=== PATIENT | female | born 2000 | race Two or more races ===

== ENCOUNTER 2023-02-10 08:51 | Inpatient (IN) | payer MEDICAID ==
[~2023-02-10] VITALS: Ht 170.2 cm; Wt 89.1 kg
[2023-02-10] MEDS ORDERED: ALBUTEROL SULF 2.5 MG/0.5ML(0.5%) NEB SOLN NEB ONE (09:45)
[2023-02-10] MEDS ORDERED: IPRATROPIUM BROM 0.5 MG/2.5ML INH SOL NEB ONE (09:45)
[2023-02-10] MEDS ORDERED: IOHEXOL 350 MG/ML 100ML IJ ONE (09:59)
[2023-02-10 10:20] LABS: Mean Corpuscular Hemoglobin 27.7 pg (28.0-32.0); Mean Corpuscular Volume 89.2 fL (80.0-100.0); Red Blood Cells 3.25 10^6/uL (4.0-5.20); White Blood Cell 26.1 10^3/uL (4.4-10.8)
[2023-02-10 10:28] LABS: Albumin 2.5 g/dL (3.4-5.0); Magnesium 2.6 mg/dL (1.6-2.6); Potassium 4.5 mmol/L (3.5-5.1)
[2023-02-10 10:30] LABS: BUN/Creatinine Ratio 40.2; Bilirubin, Total 4.7 mg/dL (0.2-1.0); Total Protein 6.1 g/dL (6.4-8.2)
[2023-02-10 10:41] LABS: Basophils % (manual) 0 (0.0-2.0); Blast Cells 0; Eosinophils % (manual) 0 (0-7); Metamyelocytes % 0; Myelocytes % 0; Promyelocytes % 0; Reactive Lymphocytes 0
[2023-02-10 11:01] LABS: Band Neutrophils % (manual) 15; Lymphocytes % (manual) 7 (10.0-50.0); Monocytes % (manual) 2 (0-12)
[2023-02-10] MEDS ORDERED: ASPirin 325 MG TAB PO ONE (11:15)
[2023-02-10] MEDS ORDERED: ACETAMINOPHEN 325 MG TAB PO ONE (11:30)
[2023-02-10] MEDS ORDERED: cefTRIAXone 1GM/50ML D5W 50 ML IV ONE (11:30)
[2023-02-10] MEDS ORDERED: AZITHROMYCIN 500MG/ 250ML 250 ML IV ONE (11:30)
[2023-02-10] MEDS ORDERED: LACTATED RINGER'S 2,000 ML IV ONE (11:30)
[2023-02-10 12:43] LABS: Urine Bacteria MOD /hpf (None Seen); Urine Blood Negative /uL (Negative); Urine Mucus FEW (None Seen); Urine Specific Gravity 1.018 (1.001-1.035); Urine WBC 2 /hpf (0 - 5)
[2023-02-10] MEDS ORDERED: MORPHINE SULFATE INJ 2 MG/ml SYRG IV PRN (15:15)
[2023-02-10] MEDS ORDERED: FUROSEMIDE 40 MG/4 ML VIAL IV ONE (15:15)
[2023-02-10] MEDS ORDERED: NITROGLYCERIN 0.4 MG SL TAB SL PRN (15:15)
[2023-02-10] MEDS ORDERED: VANCOMYCIN PER PHARMACY 0 MG IV SCH (15:15)
[2023-02-10] MEDS ORDERED: SODIUM CHLORIDE 0.9% 1,000 ML IV ONE (15:15)
[2023-02-10] MEDS ORDERED: PANTOPRAZOLE 40 MG/10 ML VIAL INJ IV ONE (15:45)
[2023-02-10] MEDS ORDERED: ENOXAPARIN SOD 100 MG/1 ML SYRINGE SC ONE (15:45)
[2023-02-10] MEDS ORDERED: VANCOMYCIN 1GM/250ML 250 ML IV ONE (16:00)
[2023-02-10] MEDS ORDERED: FUROSEMIDE INJECTION 100 MG in SODIUM CHL 0.9% 100 ML IV SCH (16:45)
[2023-02-10] MEDS ORDERED: FUROSEMIDE 20 MG/2 ML VIAL IV SCH (18:00)
[2023-02-10 18:04] LABS: Amphetamine Screen, Urine NEGATIVE (NEGATIVE); Barbiturate Scree,Urine NEGATIVE (NEGATIVE); Benzodiazephine Screen, Urine NEGATIVE (NEGATIVE); Cannabinoid Screen, Urine NEGATIVE (NEGATIVE); Cocaine Screen, Urine NEGATIVE (NEGATIVE); Opiate Scree,Urine NEGATIVE (NEGATIVE); Phencyclidine Screen, Urine NEGATIVE (NEGATIVE)
[2023-02-10 18:11] LABS: Creatinine, Urine 53 mg/dL (30.0-125.0); Protein, Urine 34.3 mg/dL (0.0-11.9); Sodium Urine < 5 mmol/L (40-220)
[2023-02-10 18:19] LABS: Cholesterol 83 mg/dL (< 200)
[2023-02-10 18:20] LABS: HDL Cholesterol 8 mg/dL (40-59); LDL Cholesterol 52 mg/dL (< 100); Triglycerides 261 mg/dL (< 150)
[2023-02-10 18:46] LABS: % Iron Saturation 18.1 % (15-50)
[2023-02-10] MEDS ORDERED: ALBUMIN 25% 100 ML IV ONE (20:45)
[2023-02-10] MEDS ORDERED: AZTREONAM 1GM INJ 1 GM in D5W 5% 50 ML IV SCH (22:00)
[2023-02-10] MEDS: CEFEPIME 2 GM in SODIUM CHL 0.9% 50 ML IV SCH (22:30)
[2023-02-10] MEDS ORDERED: SODIUM CHLORIDE 0.9% 500 ML IV ONE (23:00)
[2023-02-10] MEDS ORDERED: NOREPINEPHRINE 8 MG/250ML KIT 250 ML IV ONE (23:14)
[2023-02-10] MEDS: NOREPINEPHRINE 8 MG/250ML KIT 250 ML IV SCH (23:24)
[2023-02-11] VITALS (82 sets, daily range): BP systolic 84–127; BP diastolic 17–70
[2023-02-11 04:18] LABS: Hemoglobin 8.5 g/dL (12.2-16.2); Red Blood Cells 3.02 10^6/uL (4.0-5.20)
[2023-02-11 04:21] LABS: Hematocrit 27.1 % (36.0-46.0); Mean Corpuscular Hemoglobin 28.3 pg (28.0-32.0); Mean Corpuscular Hgb Conc. 31.5 g/dL (32.0-36.0); Mean Corpuscular Volume 89.8 fL (80.0-100.0); Red Cell Distribution Width 17.6 % (11.8-14.3)
[2023-02-11 04:41] LABS: Albumin 2.4 g/dL (3.4-5.0); BUN/Creatinine Ratio 48.8; Calcium 8.1 mg/dL (8.5-10.1); Potassium 3.9 mmol/L (3.5-5.1)
[2023-02-11 04:43] LABS: White Blood Cell 30.2 10^3/uL (4.4-10.8)
[2023-02-11 04:44] LABS: Bilirubin, Total 4.3 mg/dL (0.2-1.0); Phosphorus 3.8 mg/dL (2.5-4.90); Total Protein 6.3 g/dL (6.4-8.2)
[2023-02-11 04:45] LABS: Band Neutrophils % (manual) 0; Basophils % (manual) 0 (0.0-2.0); Blast Cells 0; Eosinophils % (manual) 0 (0-7); Metamyelocytes % 0; Myelocytes % 0; Promyelocytes % 0; Reactive Lymphocytes 0
[2023-02-11] MEDS: FUROSEMIDE INJECTION 100 MG in SODIUM CHL 0.9% 100 ML IV SCH ×2 (05:35→19:30)
[2023-02-11] MEDS: NOREPINEPHRINE 8 MG/250ML KIT 250 ML IV SCH ×3 (06:25→19:34)
[2023-02-11 09:06] LABS: Lymphocytes % (manual) 11 (10.0-50.0); Monocytes % (manual) 5 (0-12)
[2023-02-11] MEDS: PANTOPRAZOLE 40 MG/10 ML VIAL INJ IV SCH (10:08)
[2023-02-11] MEDS: ENOXAPARIN SOD 40 MG/0.4 ML SYRINGE SC SCH (10:08)
[2023-02-11] MEDS: CEFEPIME 2 GM in SODIUM CHL 0.9% 50 ML IV SCH ×2 (10:26→21:16)
[2023-02-11] MEDS: VANCOMYCIN 1GM/250ML 250 ML IV SCH (17:58)
[2023-02-11 18:49] LABS: BUN/Creatinine Ratio 47.9; Calcium 7.9 mg/dL (8.5-10.1); Potassium 3.7 mmol/L (3.5-5.1)
[2023-02-12] VITALS (92 sets, daily range): BP systolic 93–147; BP diastolic 29–66
[2023-02-12 04:15] LABS: Basophils # (auto) 0.1 10 ^3/uL (0-0.2); Basophils % (auto) 0.5 % (0.0-2.0); Eosinophils # (auto) 0 10 ^3/uL (0-0.8); Eosinophils % (auto) 0.2 % (0.0-7.0); Hematocrit 29.8 % (36.0-46.0); Hemoglobin 9.5 g/dL (12.2-16.2); Lymphocytes # (auto) 2.7 10 ^3/uL (0.4-5.4); Lymphocytes % (auto) 11.4 % (10.0-50.0); Mean Corpuscular Hemoglobin 27.8 pg (28.0-32.0); Mean Corpuscular Hgb Conc. 31.7 g/dL (32.0-36.0); Mean Corpuscular Volume 87.6 fL (80.0-100.0); Monocytes # (auto) 1.1 10 ^3/uL (0-1.3); Monocytes % (auto) 4.8 % (0.0-12.0); Neutrophils # (auto) 19.4 10 ^3/uL (1.6-8.6); Neutrophils % (auto) 83.1 % (37.0-80.0); Nucleated Red Blood Cells % 0.3 %; Red Cell Distribution Width 17.9 % (11.8-14.3); White Blood Cell 23.4 10^3/uL (4.4-10.8)
[2023-02-12 04:32] LABS: Albumin 2.3 g/dL (3.4-5.0); Calcium 7.9 mg/dL (8.5-10.1)
[2023-02-12 04:36] LABS: Bilirubin, Total 2.8 mg/dL (0.2-1.0); Total Protein 6.3 g/dL (6.4-8.2)
[2023-02-12 04:57] LABS: Potassium 2.7 mmol/L (3.5-5.1)
[2023-02-12] MEDS: VANCOMYCIN 1GM/250ML 250 ML IV SCH (05:58)
[2023-02-12] MEDS: POTASSIUM CHL 20MEQ/100ML 100 ML IV SCH ×2 (05:58→09:10)
[2023-02-12] MEDS: NOREPINEPHRINE 8 MG/250ML KIT 250 ML IV SCH ×3 (05:59→20:40)
[2023-02-12] MEDS: ENOXAPARIN SOD 40 MG/0.4 ML SYRINGE SC SCH (07:56)
[2023-02-12] MEDS ORDERED: POTASSIUM CHLORIDE 60 MEQ, LIDOCAINE 1% (LOCAL ANESTH.) 6 ML in SODIUM CHL 0.9% 500 ML IV ONE (09:00)
[2023-02-12] MEDS: CEFEPIME 2 GM in SODIUM CHL 0.9% 50 ML IV SCH (09:10)
[2023-02-12] MEDS ORDERED: fentaNYL CITRATE 100 MCG/2 ML VL IV ONE ×2 (09:30→10:15)
[2023-02-12] MEDS ORDERED: MIDAZOLAM HCL 2MG/2ML 2ml VIAL (1mg/ml) IV ONE ×2 (09:30→10:15)
[2023-02-12] MEDS ORDERED: LIDOCAINE VISCOUS 2% 15ML UD ONE (09:51)
[2023-02-12] MEDS ORDERED: MIDAZOLAM HCL 2MG/2ML 2ml VIAL (1mg/ml) ONE (10:15)
[2023-02-12] MEDS ORDERED: fentaNYL CITRATE 100 MCG/2 ML VL ONE (10:16)
[2023-02-12 11:15] LABS: INR 1.21 (0.9-1.15); Partial Thromboplastin Time 23.8 sec (24.6-33.4)
[2023-02-12] MEDS: PANTOPRAZOLE 40 MG/10 ML VIAL INJ IV SCH (12:33)
[2023-02-12] MEDS ORDERED: LIDOCAINE 1% (LOCAL ANESTH.) PF 5ml SDV ID ONE (12:45)
[2023-02-12] MEDS ORDERED: POTASSIUM EFFERVESENT TAB 25 MEQ PO SCH (14:00)
[2023-02-12] MEDS ORDERED: CEFTRIAXONE SODIUM 2 GM in D5W 5% 100 ML IV ONE (16:45)
[2023-02-12] MEDS ORDERED: ACETAMINOPHEN 325 MG TAB PO PRN (17:15)
[2023-02-12] MEDS: traMADol HCL 50 MG TAB PO PRN (17:21)
[2023-02-12] MEDS: FUROSEMIDE 20 MG/2 ML VIAL IV SCH (18:30)
[2023-02-12 20:22] LABS: BUN/Creatinine Ratio 46.2; Calcium 8.1 mg/dL (8.5-10.1); Potassium 3.3 mmol/L (3.5-5.1)
[2023-02-12] MEDS: SODIUM CHLOR 0.9% PF (SALINE LOCK) 10ML VIAL/SYR IV SCH (21:55)
[2023-02-13] VITALS (74 sets, daily range): BP systolic 102–133; BP diastolic 35–71
[2023-02-13 03:49] LABS: Basophils # (auto) 0.1 10 ^3/uL (0-0.2); Basophils % (auto) 0.5 % (0.0-2.0); Eosinophils # (auto) 0 10 ^3/uL (0-0.8); Eosinophils % (auto) 0.1 % (0.0-7.0); Hematocrit 28.8 % (36.0-46.0); Hemoglobin 9.2 g/dL (12.2-16.2); Lymphocytes # (auto) 2.1 10 ^3/uL (0.4-5.4); Lymphocytes % (auto) 9.2 % (10.0-50.0); Mean Corpuscular Hemoglobin 27.9 pg (28.0-32.0); Mean Corpuscular Hgb Conc. 31.9 g/dL (32.0-36.0); Mean Corpuscular Volume 87.4 fL (80.0-100.0); Monocytes % (auto) 4.4 % (0.0-12.0); Neutrophils # (auto) 19.4 10 ^3/uL (1.6-8.6); Neutrophils % (auto) 85.8 % (37.0-80.0); Red Blood Cells 3.29 10^6/uL (4.0-5.20); Red Cell Distribution Width 18.3 % (11.8-14.3); White Blood Cell 22.6 10^3/uL (4.4-10.8)
[2023-02-13 03:58] LABS: Potassium 3.3 mmol/L (3.5-5.1)
[2023-02-13 04:02] LABS: Albumin 2.1 g/dL (3.4-5.0); BUN/Creatinine Ratio 45.5
[2023-02-13 04:04] LABS: Total Protein 6.2 g/dL (6.4-8.2)
[2023-02-13] MEDS: NOREPINEPHRINE 8 MG/250ML KIT 250 ML IV SCH ×2 (05:08→13:49)
[2023-02-13] MEDS ORDERED: POTASSIUM CHL 20MEQ/100ML 100 ML IV ONE ×2 (05:30→05:39)
[2023-02-13] MEDS: FUROSEMIDE 20 MG/2 ML VIAL IV SCH ×2 (05:48→18:26)
[2023-02-13] MEDS ORDERED: CEFTRIAXONE SODIUM 2 GM in D5W 5% 100 ML IV SCH (10:00)
[2023-02-13] MEDS ORDERED: POTASSIUM EFFERVESENT TAB 25 MEQ PO ONE (10:00)
[2023-02-13] MEDS: ENOXAPARIN SOD 40 MG/0.4 ML SYRINGE SC SCH (10:16)
[2023-02-13] MEDS: PANTOPRAZOLE 40 MG/10 ML VIAL INJ IV SCH (10:16)
[2023-02-13] MEDS: SODIUM CHLOR 0.9% PF (SALINE LOCK) 10ML VIAL/SYR IV SCH (10:17)
[2023-02-13] MEDS: traMADol HCL 50 MG TAB PO PRN (16:21)
[2023-02-14] MEDS ORDERED: POTASSIUM EFFERVESENT TAB 25 MEQ PO SCH (10:00)
== END 2023-02-14 00:15 | disposition short-term general hospital (02) | DRG 194 ==
LOC: ER 08:51 → TELE 15:35 → ICU WEST 23:31
PROVIDERS: ADMIT Registered Nurse; ATTEND Internal Medicine
PROC: B24BZZ4 Ultrasonography of Heart with Aorta, Transesophageal (ICD-10-PCS; principal; 2023-02-12)
PROC: 02HV33Z Insertion of Infusion Device into Superior Vena Cava, Percutaneous Approach (ICD-10-PCS; 2023-02-12)
PROC: B548ZZA Ultrasonography of Superior Vena Cava, Guidance (ICD-10-PCS; 2023-02-12)
DX: I50.21 Acute systolic (congestive) heart failure (principal); N17.0 Acute kidney failure with tubular necrosis; I33.0 Acute and subacute infective endocarditis; R57.0 Cardiogenic shock; I21.A1 Myocardial infarction type 2; E86.0 Dehydration; E43 Unspecified severe protein-calorie malnutrition; I31.39 Other pericardial effusion (noninflammatory); E87.1 Hypo-osmolality and hyponatremia; Z20.822 Contact with and (suspected) exposure to COVID-19; I27.20 Pulmonary hypertension, unspecified; D50.9 Iron deficiency anemia, unspecified; E66.01 Morbid (severe) obesity due to excess calories; E78.5 Hyperlipidemia, unspecified; G40.909 Epilepsy, unspecified, not intractable, without status epilepticus; I42.0 Dilated cardiomyopathy; L83 Acanthosis nigricans; N39.0 Urinary tract infection, site not specified; R73.03 Prediabetes; I35.1 Nonrheumatic aortic (valve) insufficiency; Z68.30 Body mass index [BMI] 30.0-30.9, adult; Z88.0 Allergy status to penicillin
CPT/HCPCS: 36415; 36569; 36600; 71045; 71260; 74177; 76705; 80048; 80053; 80061; 80307; 80320; 81001; 82533; 82570; 82805; 82977; 83036; 83540; 83550; 83605; 83735; 83880; 83935; 84100; 84156; 84300; 84443; 84484; 84702; 85007; 85025; 85027; 85379; 85610; 85730; 86850; 86900; 86901; 87040; 87077; 87081; 87086; 87088; 87186; 87426; 87804; 93005; 93306; 93312; 93970; 94640; 96361; 96365; 96367; 96368; 96372; 96375; 99291; C9113; G0378; J0696; J2001; J2250; J3480; J7060; P9047